=== PATIENT | female | born 1960 | race African-American/Black ===

== ENCOUNTER 2019-02-09 09:50 | Emergency (ER) | payer OTHER ==
[~2019-02-09] VITALS: Ht 162.6 cm; Wt 68.0 kg
[2019-02-09] MEDS ORDERED: PNEU16DI2 (12:05)
[2019-02-09] MEDS ORDERED: ADVIL100 MG PO ×2 (12:05→12:06)
[2019-02-09] MEDS ORDERED: NEURONTIN300 MG PO (12:06)
[2019-02-09] MEDS ORDERED: MEDROLPACK PO (12:06)
== END 2019-02-09 12:26 | disposition home or self-care (01) ==
LOC: ER 09:50
DX: G50.1 Atypical facial pain (principal)

== ENCOUNTER 2019-03-12 12:03 | Emergency (ER) | payer OTHER ==
[~2019-03-12] VITALS: Ht 165.1 cm; Wt 70.3 kg
[~2019-03-12 12:03] MED LIST: ADVIL100 MG PO; MEDROLPACK PO; NEURONTIN300 MG PO; PNEU16DI2
[2019-03-12] MEDS ORDERED: COZAAR25 MG (12:30)
[2019-03-12] MEDS ORDERED: ASA81 MG PO (12:30)
[2019-03-12] MEDS ORDERED: SIMVASTATIN20 MG PO (12:31)
== END 2019-03-12 15:05 | disposition home or self-care (01) ==
LOC: ER 12:03
DX: M25.512 Pain in left shoulder (principal)